=== PATIENT | female | born 1965 | race Caucasian/White ===

== ENCOUNTER 2016-11-23 21:26 | Inpatient (IN) | payer MEDICARE, MEDICAID ==
[2016-11-23] MEDS ORDERED: Iodixanol 320 MG/ML 100 ML BOTTLE IV ONE (22:37)
[2016-11-23] MEDS ORDERED: Sodium Chloride 0.9% 500 ML IV ONE (22:44)
[2016-11-23 22:48] LABS: BASO % 0.1 % (0.0-2.0); EOS # 0.1 K/uL (0.0-0.7); EOS % 0.5 % (0.0-4.0); HEMATOCRIT 32.4 % (34.0-47.0); LYMPH % 5.3 % (20.0-40.0); MEAN CELL VOLUME 82.3 fL (81.0-99.0); MEAN CORPUSCULAR HEMOGLOBIN 26.8 pg (27.0-31.0); MEAN CORPUSCULAR HGB CONC 32.5 g/dL (33.0-37.0); MEAN PLATELET VOLUME 9.6 fL (7.2-11.7); MONO # 1.4 K/uL (0.0-0.8); MONO % 7.2 % (0.0-10.0); RED CELL DISTRIBUTION WIDTH 13.9 % (11.5-14.5); WHITE BLOOD COUNT 18.9 K/uL (4.8-10.8)
[2016-11-23] MEDS ORDERED: Iohexol 240 (50 ml) PO ONE (22:55)
[2016-11-23 23:00] LABS: PLATELET COUNT 127 K/uL (130-400)
[2016-11-23 23:01] LABS: POTASSIUM 2.7 mmol/L (3.6-5.2)
--- NOTE | 2016-11-23 23:01 | C.PDOC ---
History Of Present Illness A 51 y/o female presents to the ER c/o abdominal pain and vomiting for the past 3 days. Pt is mentally challenged with dementia. Pt denies fever, chills, diarrhea, trauma to the area, vaginal bleeding or discharge, or any other complaints. Time Seen by Provider: 11/23/16 22:40 Chief Complaint (Nursing): Abdominal Pain History Per: Patient History/Exam Limitations: no limitations Onset/Duration Of Symptoms: Days Current Symptoms Are (Timing): Still Present Severity: Mild Location Of Pain/Discomfort: Diffuse Quality Of Discomfort: "Pain" Additional History Per: Patient Past Medical History Reviewed: Historical Data, Nursing Documentation, Vital Signs Vital Signs: Last Vital Signs Temp 98.0 F 11/23/16 21:47 Pulse 75 11/23/16 21:47 Resp 18 11/23/16 21:47 BP 137/82 11/23/16 21:47 Pulse Ox 100 11/24/16 02:45 - Medical History PMH: HTN, Hyperthyroidism Family History: States: Unknown Family Hx - Social History Hx Alcohol Use: No Hx Substance Use: No Review Of Systems Except As Marked, All Systems Reviewed And Found Negative. Constitutional: Negative for: Fever, Chills, Other (Trauma to the area) Gastrointestinal: Positive for: Vomiting, Abdominal Pain. Negative for: Diarrhea Genitourinary: Negative for: Vaginal Discharge, Vaginal Bleeding Physical Exam - Physical Exam Appears: Non-toxic, No Acute Distress, Agitated Skin: Warm, Dry Head: Atraumatic, Normacephalic Eye(s): bilateral: Normal Inspection, EOMI Cardiovascular: Rhythm Regular, No Murmur Respiratory: Rales (Rales left lower lung), No Rhonchi, No Wheezing Gastrointestinal/Abdominal: Soft, Tenderness (Tenderness of th eLLQ) Neurological/Psych: Oriented x3, Normal Speech, Normal Cognition ED Course And Treatment - Laboratory Results Result Diagrams: 11/23/16 22:46 11/23/16 22:46 ECG: Interpreted By Me, Viewed By Me ECG Rhythm: Sinus Tachycardia ECG Interpretation: No Acute Changes, Abnormal Interpretation Of ECG: presence of miniscule q wave in AVF qs in III Rate From EC O2 Sat by Pulse Oximetry: 100 (RA) Pulse Ox Interpretation: Normal - CT Scan/US CT Abdomen and Pelvis With Contrast Other Rad Studies (CT/US): Interpreted By Me, Read By Radiologist CT/US Interpretation: EXAM: CT Abdomen and Pelvis With Intravenous Contrast. CLINICAL HISTORY: 51 years old, female; Pain; Abdominal pain; Generalized; Additional info: Abd pain/ vomiting. TECHNIQUE: Axial computed tomography images of the abdomen and pelvis with intravenous contrast. This CT. exam was performed using one or more of the following dose reduction techniques: automated. exposure control, adjustment of the mA and/or kV according to patient size, and/or use of iterative. reconstruction technique. Coronal and sagittal reformatted images were created and reviewed. CONTRAST: 800 mL of [id number] administered intravenously. EXAM DATE/TIME: 11/23/2016 11:37 PM. COMPARISON: No relevant prior studies available. FINDINGS: LIMITATIONS: Exam is limited by mild to moderate streak/motion artifact, and by streak artifact from. metallic hardware in the right hip. LOWER THORAX: Patchy, small areas of consolidation in the lung bases bilaterally, in the perihilar. regions bilaterally, suspicious for a patchy bilateral pneumonia. Mild to moderate wall thickening of. the distal esophagus. There is gastroesophageal reflux. ABDOMEN : LIVER: No acute abnormality of the liver identified. GALLBLADDER AND BILE DUCTS: Gallbladder is not seen, and may be contracted or surgically. absent. PANCREAS: No CT evidence of acute pancreatitis. SPLEEN: No acute abnormality of the spleen identified. ADRENALS: No acute abnormality of the adrenal glands identified. KIDNEYS AND URETERS: Bilateral perinephric stranding, a nonspecific finding. No acute. abnormality of the kidneys identified. STOMACH AND BOWEL: No definite acute abnormality of the bowel identified, allowing for motion. artifact. No evidence of bowel obstruction. No evidence of diffuse colitis/pancolitis. APPENDIX:Normal appendix is not seen, however, there are no significant inflammatory changes. visualized in the expected location of the appendix to suggest appendicitis. Recommend clinical. correlation. PELVIS : BLADDER: No acute abnormality of the bladder identified. REPRODUCTIVE:No acute abnormality of the reproductive organs is seen. No acute abnormality of. the uterus identified. No evidence of large adnexal masses. ABDOMEN and PELVIS : INTRAPERITONEAL SPACE: No evidence of free intraperitoneal air or fluid. BONES/JOINTS: Metallic hardware in the right hip. Chronic-appearing vertebral compression. fracture of L2. SOFT TISSUES: No acute abnormality of the visualized soft tissues is seen. VASCULATURE: No evidence of abdominal aortic aneurysm. No evidence of periaortic. hemorrhage. LYMPH NODES: No evidence of diffuse lymphadenopathy. IMPRESSION: - Findings in the lung bases suspicious for a patchy bilateral pneumonia. Recommend clinical. correlation. - Wall thickening of the distal esophagus. This is a nonspecific finding, but can be seen with mild. esophagitis, such as reflux esophagitis. Recommend clinical correlation. - Otherwise, no evidence of significant acute process, allowing for motion artifact. - See above for remaining findings. Progress Note: NG tube inserted and showed clear aspirate, no blood noted., NG tube subsequently removed. Medical Decision Making Medical Decision Making: Impression: 51 y/o c/o abdominal pain and vomiting for 3 days. Plans: -CT Abd/Pel -CXR -Omnipaque -Ativan -IV fluids -Reassess and disposition Patient is resting comfortably, abdomen remains soft, and patient is tolerating PO. Patient feels comfortable going home. Patient will be discharged home Disposition Discussed With Dr.: Alexandria Aiken Doctor Will See Patient In The: Hospital Counseled Patient/Family Regarding: Diagnosis - Disposition Disposition: HOSPITALIZED Disposition Time: 02:43 Condition: STABLE - POA Present On Arrival: None - Clinical Impression Clinical Impression: Abdominal pain, Pneumonia, Renal insufficiency - Scribe Statement The provider has reviewed the documentation as recorded by the Scribe Fernando hargrove All medical record entries made by the Scribe were at my direction and personally dictated by me. I have reviewed the chart and agree that the record accurately reflects my personal performance of the history, physical exam, medical decision making, and the department course for this patient. I have also personally directed, reviewed, and agree with the discharge instructions and disposition.
[2016-11-23 23:03] LABS: BILIRUBIN,TOTAL 0.8 mg/dL (0.2-1.3)
[2016-11-23] MEDS ORDERED: Iohexol 240 (50 ml) ONE (23:03)
[2016-11-23 23:04] LABS: ALB/GLOB RATIO 0.8 (1.0-2.1); TOTAL PROTEIN 7.7 g/dL (6.3-8.3)
[2016-11-23 23:43] LABS: RBC URINE 26 /hpf (0-3); URINE BACTERIA RARE (<OCC); URINE BILIRUBIN NEGATIVE (NEGATIVE); URINE BLOOD 3+ (NEGATIVE); URINE COLOR Yellow (YELLOW); URINE GLUCOSE (UA) NORMAL (Normal); URINE HYALINE CAST 0-2 /lpf (0-2); URINE KETONE NEGATIVE (NEGATIVE); URINE LEUKOCYTE ESTERASE 3+ Leu/uL (Negative); URINE PROTEIN 2+ mg/dL (NEGATIVE); URINE UROBILINOGEN NORMAL mg/dL (0.2-1.0); WBC URINE 127 /hpf (0-5)
[2016-11-23 23:51] LABS: INR 1.3
[2016-11-23 23:53] LABS: NEUTROPHIL 86 % (50-75); TOTAL CELLS COUNTED 100
[2016-11-24] MEDS ORDERED: cefTRIAXone IV 1 gm in Dextros 50 ML IVPB ONE ×2 (00:44→01:01)
--- NOTE | 2016-11-24 02:18 | CT ---
EXAM: CT Abdomen and Pelvis With Intravenous Contrast CLINICAL HISTORY: 51 years old, female; Pain; Abdominal pain; Generalized; Additional info: Abd pain/ vomiting TECHNIQUE: Axial computed tomography images of the abdomen and pelvis with intravenous contrast. This CT exam was performed using one or more of the following dose reduction techniques: automated exposure control, adjustment of the mA and/or kV according to patient size, and/or use of iterative reconstruction technique. Coronal and sagittal reformatted images were created and reviewed. CONTRAST: 800 mL of [id number] administered intravenously. EXAM DATE/TIME: 11/23/2016 11:37 PM COMPARISON: No relevant prior studies available. FINDINGS: LIMITATIONS: Exam is limited by mild to moderate streak/motion artifact, and by streak artifact from metallic hardware in the right hip. LOWER THORAX: Patchy, small areas of consolidation in the lung bases bilaterally, in the perihilar regions bilaterally, suspicious for a patchy bilateral pneumonia. Mild to moderate wall thickening of the distal esophagus. There is gastroesophageal reflux. ABDOMEN: LIVER: No acute abnormality of the liver identified. GALLBLADDER AND BILE DUCTS: Gallbladder is not seen, and may be contracted or surgically absent. PANCREAS: No CT evidence of acute pancreatitis. SPLEEN: No acute abnormality of the spleen identified. ADRENALS: No acute abnormality of the adrenal glands identified. KIDNEYS AND URETERS: Bilateral perinephric stranding, a nonspecific finding. No acute abnormality of the kidneys identified. STOMACH AND BOWEL: No definite acute abnormality of the bowel identified, allowing for motion artifact. No evidence of bowel obstruction. No evidence of diffuse colitis/pancolitis. APPENDIX:Normal appendix is not seen, however, there are no significant inflammatory changes visualized in the expected location of the appendix to suggest appendicitis. Recommend clinical correlation. PELVIS: BLADDER: No acute abnormality of the bladder identified. REPRODUCTIVE:No acute abnormality of the reproductive organs is seen. No acute abnormality of the uterus identified. No evidence of large adnexal masses. ABDOMEN and PELVIS: INTRAPERITONEAL SPACE: No evidence of free intraperitoneal air or fluid. BONES/JOINTS: Metallic hardware in the right hip. Chronic-appearing vertebral compression fracture of L2. SOFT TISSUES: No acute abnormality of the visualized soft tissues is seen. VASCULATURE: No evidence of abdominal aortic aneurysm. No evidence of periaortic hemorrhage. LYMPH NODES: No evidence of diffuse lymphadenopathy. IMPRESSION: - Findings in the lung bases suspicious for a patchy bilateral pneumonia. Recommend clinical correlation. - Wall thickening of the distal esophagus. This is a nonspecific finding, but can be seen with mild esophagitis, such as reflux esophagitis. Recommend clinical correlation. - Otherwise, no evidence of significant acute process, allowing for motion artifact. - See above for remaining findings.
[2016-11-24] MEDS ORDERED: Azithromycin 500mg/250ML NS 500 MG/250 ML BAG IV STA (02:23)
[2016-11-24] MEDS ORDERED: Azithromycin 500mg/250ML NS 500 MG/250 ML BAG IVPB ONE (03:37)
--- NOTE | 2016-11-24 09:09 | RAD ---
PROCEDURE: CHEST RADIOGRAPH, 1 VIEW HISTORY: abd pain COMPARISON: None available. FINDINGS: LUNGS: Findings suggestive of mild pulmonary vascular congestion. PLEURA: No pneumothorax or pleural fluid seen. CARDIOVASCULAR: The cardiac silhouette is upper normal OSSEOUS STRUCTURES: No significant abnormalities. VISUALIZED UPPER ABDOMEN: Normal. OTHER FINDINGS: None. IMPRESSION: Suspicious for mild pulmonary vascular congestion. No evidence of free air in the upper abdomen.
[2016-11-24 11:20] LABS: POTASSIUM 2.8 mmol/L (3.6-5.2)
[2016-11-24 11:22] LABS: BILIRUBIN,TOTAL 0.6 mg/dL (0.2-1.3)
[2016-11-24 11:23] LABS: ALB/GLOB RATIO 0.8 (1.0-2.1); CALCIUM 7.1 mg/dl (8.6-10.4); TOTAL PROTEIN 6.6 g/dL (6.3-8.3)
--- NOTE | 2016-11-24 16:25 | CP.PCM.HP ---
History of Present Illness - History of Present Illness History of Present Illness: 51-year-old female patient with a past medical history of hypertension, hypothyroidism, who resented to ER with complaint of abdominal pain and vomiting for the past 3 days. Patient is mentally challenged with dementia. Denies fever, chills, diarrhea, trauma to the area, vaginal bleeding or discharge or any other complaints. Present on Admission - Present on Admission Any Indicators Present on Admission: No Past Patient History - Infectious Disease Hx of Infectious Diseases: None - Past Medical History & Family History Past Medical History?: Yes - Past Social History Smoking Status: Never Smoked - CARDIAC Hx Hypertension: Yes - ENDOCRINE/METABOLIC Hx Hyperthyroidism: Yes - MUSCULOSKELETAL/RHEUMATOLOGICAL Hx Falls: No - PSYCHIATRIC Hx Substance Use: No - SURGICAL HISTORY Hx Surgeries: No - ANESTHESIA Hx Anesthesia: No Meds Home Medications: Home Medication List Medication Instructions Recorded Confirmed Type Lactobacillus Acidophilus 1 cap PO BID 15 Days 11/29/16 Rx [Acidophilus] Metoprolol Succinate [Toprol XL] 25 mg PO DAILY tab 11/29/16 Rx Moxifloxacin [Avelox] 400 mg PO DAILY #7 tab 11/29/16 Rx Allergies/Adverse Reactions: Allergies Allergy/AdvReac Type Severity Reaction Status Date / Time No Known Allergies Allergy Verified 11/23/16 21:49 Results - Vital Signs Recent Vital Signs: Last Vital Signs Temp 97.4 F L 11/24/16 08:20 Pulse 116 H 11/24/16 08:37 Resp 19 11/24/16 08:20 BP 114/78 11/24/16 08:20 Pulse Ox 98 11/24/16 08:20 - Labs Result Diagrams: 11/29/16 14:35 11/26/16 07:09 Labs: Laboratory Results - last 24 hr 11/24/16 11:04 Sodium 125 L Potassium 2.8 L Chloride 85 L Carbon Dioxide 27 Anion Gap 17 BUN 67 H Creatinine 3.5 H Est GFR ( Amer) 17 Est GFR (Non-Af Amer) 14 Random Glucose 98 Calcium 7.1 L Total Bilirubin 0.6 AST 98 H ALT 72 H Alkaline Phosphatase 80 Total Protein 6.6 Albumin 3.0 L Globulin 3.7 Albumin/Globulin Ratio 0.8 L Assessment & Plan (1) Abdominal pain Status: Acute (2) Pneumonia Status: Acute (3) Renal insufficiency Status: Acute - Assessment and Plan (Free Text) Plan: consult Gastrology consult pulmonology consult ID consult Media Relations Associate Imipenam/Cilastatin iv NS Metoclopramide Avelox Protonix
[2016-11-24] MEDS ORDERED: DiphenhydrAMINE 50 mg/ml Inj IVP STA (20:57)
[2016-11-25 07:07] LABS: BASO % 0.1 % (0.0-2.0); EOS # 0.1 K/uL (0.0-0.7); EOS % 0.5 % (0.0-4.0); HEMATOCRIT 29.3 % (34.0-47.0); LYMPH # 0.9 K/uL (1.0-4.3); LYMPH % 6.5 % (20.0-40.0); MEAN CELL VOLUME 82.3 fL (81.0-99.0); MEAN CORPUSCULAR HEMOGLOBIN 26.8 pg (27.0-31.0); MEAN CORPUSCULAR HGB CONC 32.6 g/dL (33.0-37.0); MEAN PLATELET VOLUME 9.4 fL (7.2-11.7); MONO # 1.4 K/uL (0.0-0.8); NRBC % 0.1 % (0.0-2.0); PLATELET COUNT 113 K/uL (130-400); RED CELL DISTRIBUTION WIDTH 14.2 % (11.5-14.5); WHITE BLOOD COUNT 13.7 K/uL (4.8-10.8)
[2016-11-25 07:40] LABS: POTASSIUM 3.9 mmol/L (3.6-5.2)
[2016-11-25 07:42] LABS: BILIRUBIN,TOTAL 0.7 mg/dL (0.2-1.3)
[2016-11-25 07:43] LABS: ALB/GLOB RATIO 0.8 (1.0-2.1); CALCIUM 7.9 mg/dl (8.6-10.4); TOTAL PROTEIN 6.9 g/dL (6.3-8.3)
[2016-11-25 08:56] LABS: NEUTROPHIL 83 % (50-75); TOTAL CELLS COUNTED 100
[2016-11-25] MEDS ORDERED: Enoxaparin 30 mg Syringe SC SCH (10:00)
[2016-11-25] MEDS: Multiple Vitamins Oral Solution PO SCH (11:29)
[2016-11-25] MEDS ORDERED: Imipenem/Cilastatin 500 MG in Dextrose 5% In Water 100 ML IVPB SCH (12:15)
[2016-11-25] MEDS: Sodium Chloride 0.9% 1,000 ML IV SCH (13:22)
[2016-11-25] MEDS: Metoprolol Succinate 25 mg XL Tab PO SCH (13:22)
--- NOTE | 2016-11-25 13:32 | CP.PCM.CON ---
History of Present Illness - History of Present Illness History of Present Illness: Consult requested by Dr Eleanor Aiken- Interview conducted in Nik at bedside with . Patient has history of dementia. In a nutshell this is a 51 y/o female brought to the ER with lower abdominal pain and vomiting for the past 3 days which gradually got worse. Patient noted to have UTI on urine analysis but as patient denies dysuria. She denies fever, chills, diarrhea, constipation, cough or rectal bleeding. is unsure if ehas had EGD/ colonoscopy in the past. Patient was brought snacks from home that she ate as per . Review of Systems - Review of Systems Review of Systems: 12 point ROS unremarkable except that documented in HPI Past Patient History - Infectious Disease Hx of Infectious Diseases: None - Past Medical History & Family History Past Medical History?: Yes - Past Social History Smoking Status: Never Smoked - CARDIAC Hx Hypertension: Yes - ENDOCRINE/METABOLIC Hx Hyperthyroidism: Yes - MUSCULOSKELETAL/RHEUMATOLOGICAL Hx Falls: No - PSYCHIATRIC Hx Substance Use: No - SURGICAL HISTORY Hx Surgeries: No - ANESTHESIA Hx Anesthesia: No Meds Allergies/Adverse Reactions: Allergies Allergy/AdvReac Type Severity Reaction Status Date / Time No Known Allergies Allergy Verified 11/23/16 21:49 - Medications Medications: Current Medications Dicyclomine HCl (Bentyl) 20 mg PO DAILY [facility] Imipenem/Cilastatin Sodium 250 (mg/ Sodium Chloride) 100 mls @ 100 mls/hr IVPB Q6H [facility] Sodium Chloride (Sodium Chloride 0.9%) 1,000 mls @ 75 mls/hr IV .[id number] [facility] Aztreonam 1 gm/ Sodium (Chloride) 100 mls @ 200 mls/hr IVPB DAILY [facility] Influenza Virus Vaccine (Afluria) 45 mcg IM .ONCE ONE Stop: 11/26/16 14:01 Metoclopramide HCl (Reglan) 10 mg PO DAILY [facility] Last Admin: 11/25/16 09:53 Dose: 10 mg Metoprolol Succinate (Toprol Xl) 25 mg PO DAILY [facility] Moxifloxacin HCl (Avelox) 400 mg PO DAILY [facility] Last Admin: 11/25/16 09:53 Dose: 400 mg Multivitamins/Vitamin C (Multi-Delyn Liquid) 5 ml PO DAILY [facility] Last Admin: 11/25/16 11:29 Dose: 5 ml Pantoprazole Sodium (Protonix Inj) 40 mg IVP DAILY [facility] Last Admin: 11/25/16 09:53 Dose: 40 mg Pneumococcal Polyvalent Vaccine (Pneumovax 23 Vaccine) 0.5 ml IM .ONCE ONE Stop: 11/26/16 14:01 Physical Exam - Constitutional Appears: Well, No Acute Distress, Older Than Stated Age, Confused - Head Exam Head Exam: ATRAUMATIC, NORMAL INSPECTION, NORMOCEPHALIC Additional comments: Anicteric sclera - Eye Exam Eye Exam: EOMI, Normal appearance, PERRL - ENT Exam ENT Exam: Mucous Membranes Moist, Normal Exam - Neck Exam Neck exam: Positive for: Normal Inspection - Respiratory Exam Respiratory Exam: Clear to Auscultation Bilateral, NORMAL BREATHING PATTERN - Cardiovascular Exam Cardiovascular Exam: REGULAR RHYTHM - GI/Abdominal Exam GI & Abdominal Exam: Normal Bowel Sounds, Soft. absent: Tenderness Additional comments: Non tender. No guarding or rigidity - Extremities Exam Extremities exam: Positive for: normal inspection - Back Exam Back exam: FULL ROM - Neurological Exam Neurological exam: Alert, Reflexes Normal - Psychiatric Exam Psychiatric exam: Normal Mood - Skin Skin Exam: Dry, Intact Results - Vital Signs Recent Vital Signs: Last Vital Signs Temp 97.3 F L 11/25/16 07:00 Pulse 106 H 11/25/16 07:00 Resp 19 11/25/16 07:00 BP 121/79 11/25/16 07:00 Pulse Ox 97 11/25/16 07:00 - Labs Result Diagrams: 11/25/16 07:00 11/25/16 07:00 Labs: Laboratory Results - last 24 hr 11/25/16 11/25/16 07:00 07:00 WBC 13.7 H RBC 3.57 L Hgb 9.6 L Hct 29.3 L MCV 82.3 MCH 26.8 L MCHC 32.6 L RDW 14.2 Plt Count 113 L MPV 9.4 Neut % (Auto) 82.9 H Lymph % (Auto) 6.5 L [place] % (Auto) 10.0 Eos % (Auto) 0.5 Baso % (Auto) 0.1 Neut # 11.3 H Lymph # 0.9 L [place] # 1.4 H Eos # 0.1 Baso # 0.0 Neutrophils % (Manual) 83 H Lymphocytes % (Manual) 9 L Monocytes % (Manual) 8 Toxic Granulation Present Platelet Estimate Slightly decreased L Hypochromasia (manual) Slight Poikilocytosis (manual Slight Anisocytosis (manual) Slight Tear Drop Cells Slight Ovalocytes Slight [place] Cells Slight Sodium 129 L Potassium 3.9 Chloride 94 L Carbon Dioxide 22 Anion Gap 18 BUN 65 H Creatinine 3.1 H Est GFR ( Amer) 19 Est GFR (Non-Af Amer) 16 Random Glucose 102 Calcium 7.9 L Total Bilirubin 0.7 AST 127 H D ALT 87 H D Alkaline Phosphatase 92 Total Protein 6.9 Albumin 3.0 L Globulin 3.9 Albumin/Globulin Ratio 0.8 L Assessment & Plan - Assessment and Plan (Free Text) Assessment: This is a 51 yr old gujarati female with alleged dementia who does not appropriately answer questions. at bedside interviewed in Nik. She complained of lower abdominal pain worsening in past 3 days with one episode of vomiting. In ER found to have leukocytosis, LE +, WBC +, RBC + on UA and CTAP shows lower esophagus thickening likely due to GERD related esophagitis. Unknown history of past luminal exams. Also has elevated transminases with normal TB. Plan: - Leukocytosis improving - urine culture shows contaminant - repeat Urine culture - DARIAN likely due to infection or dehydration - Will benefit from nephrology consult - CTAP shows b/l patchy infiltrate sin lungs - Antibiotics as per primary team - PPI daily on empty stomach in am - Send iron profile - Will benefit from EGD/ colonoscopy- can be done as outpatient - Abnormal LFT- will send hepatitis and autoimmune serologies - Abdominal sonogram - Trend daily LFT - Will follow - Date & Time Date: 11/25/16
[2016-11-25] MEDS ORDERED: Aztreonam 1 GM in Sodium Chloride 0.9% 100 ML IVPB SCH (14:00)
[2016-11-25] MEDS: Imipenem/Cilastatin 250 MG in Sodium Chloride 100 ML IVPB SCH ×2 (14:50→18:41)
--- NOTE | 2016-11-25 16:06 | CP.PCM.CON ---
History of Present Illness - History of Present Illness History of Present Illness: dictated Past Patient History - Infectious Disease Hx of Infectious Diseases: None - Past Medical History & Family History Past Medical History?: Yes - Past Social History Smoking Status: Never Smoked - CARDIAC Hx Hypertension: Yes - ENDOCRINE/METABOLIC Hx Hyperthyroidism: Yes - MUSCULOSKELETAL/RHEUMATOLOGICAL Hx Falls: No - PSYCHIATRIC Hx Substance Use: No - SURGICAL HISTORY Hx Surgeries: No - ANESTHESIA Hx Anesthesia: No Meds Allergies/Adverse Reactions: Allergies Allergy/AdvReac Type Severity Reaction Status Date / Time No Known Allergies Allergy Verified 11/23/16 21:49 - Medications Medications: Current Medications Dicyclomine HCl (Bentyl) 20 mg PO DAILY [facility] Imipenem/Cilastatin Sodium 250 (mg/ Sodium Chloride) 100 mls @ 100 mls/hr IVPB Q6H [facility] Last Admin: 11/25/16 14:50 Dose: 100 mls/hr Sodium Chloride (Sodium Chloride 0.9%) 1,000 mls @ 75 mls/hr IV .[id number] [facility] Last Admin: 11/25/16 13:22 Dose: 75 mls/hr Aztreonam 1 gm/ Sodium (Chloride) 100 mls @ 200 mls/hr IVPB DAILY [facility] Last Admin: 11/25/16 13:24 Dose: 200 mls/hr Influenza Virus Vaccine (Afluria) 45 mcg IM .ONCE ONE Stop: 11/26/16 14:01 Metoclopramide HCl (Reglan) 10 mg PO DAILY [facility] Last Admin: 11/25/16 09:53 Dose: 10 mg Metoprolol Succinate (Toprol Xl) 25 mg PO DAILY [facility] Last Admin: 11/25/16 13:22 Dose: 25 mg Moxifloxacin HCl (Avelox) 400 mg PO DAILY [facility] Last Admin: 11/25/16 09:53 Dose: 400 mg Multivitamins/Vitamin C (Multi-Delyn Liquid) 5 ml PO DAILY [facility] Last Admin: 11/25/16 11:29 Dose: 5 ml Pantoprazole Sodium (Protonix Inj) 40 mg IVP DAILY [facility] Last Admin: 11/25/16 09:53 Dose: 40 mg Pneumococcal Polyvalent Vaccine (Pneumovax 23 Vaccine) 0.5 ml IM .ONCE ONE Stop: 11/26/16 14:01 Results - Vital Signs Recent Vital Signs: Last Vital Signs Temp 97.7 F 11/25/16 15:35 Pulse 107 H 11/25/16 15:35 Resp 18 11/25/16 15:35 BP 120/69 11/25/16 15:35 Pulse Ox 98 11/25/16 15:35 - Labs Result Diagrams: 11/25/16 07:00 11/25/16 07:00 Labs: Laboratory Results - last 24 hr 11/25/16 11/25/16 11/25/16 07:00 07:00 13:34 WBC 13.7 H RBC 3.57 L Hgb 9.6 L Hct 29.3 L MCV 82.3 MCH 26.8 L MCHC 32.6 L RDW 14.2 Plt Count 113 L MPV 9.4 Neut % (Auto) 82.9 H Lymph % (Auto) 6.5 L [place] % (Auto) 10.0 Eos % (Auto) 0.5 Baso % (Auto) 0.1 Neut # 11.3 H Lymph # 0.9 L [place] # 1.4 H Eos # 0.1 Baso # 0.0 Neutrophils % (Manual) 83 H Lymphocytes % (Manual) 9 L Monocytes % (Manual) 8 Toxic Granulation Present Platelet Estimate Slightly decreased L Hypochromasia (manual) Slight Poikilocytosis (manual Slight Anisocytosis (manual) Slight Tear Drop Cells Slight Ovalocytes Slight [place] Cells Slight Sodium 129 L Potassium 3.9 Chloride 94 L Carbon Dioxide 22 Anion Gap 18 BUN 65 H Creatinine 3.1 H Est GFR ( Amer) 19 Est GFR (Non-Af Amer) 16 Random Glucose 102 Calcium 7.9 L Total Bilirubin 0.7 AST 127 H D ALT 87 H D Alkaline Phosphatase 92 Total Protein 6.9 Albumin 3.0 L Globulin 3.9 Albumin/Globulin Ratio 0.8 L IgG Hepatitis A IgM Ab Negative Hep Bs Antigen Negative Hep B Core IgM Ab Negative 11/25/16 14:30 WBC RBC Hgb Hct MCV MCH MCHC RDW Plt Count MPV Neut % (Auto) Lymph % (Auto) [place] % (Auto) Eos % (Auto) Baso % (Auto) Neut # Lymph # [place] # Eos # Baso # Neutrophils % (Manual) Lymphocytes % (Manual) Monocytes % (Manual) Toxic Granulation Platelet Estimate Hypochromasia (manual) Poikilocytosis (manual Anisocytosis (manual) Tear Drop Cells Ovalocytes [place] Cells Sodium Potassium Chloride Carbon Dioxide Anion Gap BUN Creatinine Est GFR ( Amer) Est GFR (Non-Af Amer) Random Glucose Calcium Total Bilirubin AST ALT Alkaline Phosphatase Total Protein Albumin Globulin Albumin/Globulin Ratio IgG 1124.5 Hepatitis A IgM Ab Hep Bs Antigen Hep B Core IgM Ab
--- NOTE | 2016-11-25 18:04 | CP.PCM.PN ---
Subjective - Date & Time of Evaluation Date of Evaluation: 11/25/16 Time of Evaluation: 11:20 - Subjective Subjective: clinically same Objective - Vital Signs/Intake and Output Vital Signs (last 24 hours): Temp Pulse Resp BP Pulse Ox 97.7 F 107 H 18 120/69 98 11/25/16 15:35 11/25/16 15:35 11/25/16 15:35 11/25/16 15:35 11/25/16 15:35 Intake and Output: 11/25/16 11/25/16 06:59 18:59 Intake Total 550 580 Balance 550 580 - Medications Medications: Current Medications Dicyclomine HCl (Bentyl) 20 mg PO DAILY [facility] Imipenem/Cilastatin Sodium 250 (mg/ Sodium Chloride) 100 mls @ 100 mls/hr IVPB Q6H [facility] Last Admin: 11/25/16 14:50 Dose: 100 mls/hr Sodium Chloride (Sodium Chloride 0.9%) 1,000 mls @ 75 mls/hr IV .[id number] [facility] Last Admin: 11/25/16 13:22 Dose: 75 mls/hr Influenza Virus Vaccine (Afluria) 45 mcg IM .ONCE ONE Stop: 11/26/16 14:01 Metoclopramide HCl (Reglan) 10 mg PO DAILY [facility] Last Admin: 11/25/16 09:53 Dose: 10 mg Metoprolol Succinate (Toprol Xl) 25 mg PO DAILY [facility] Last Admin: 11/25/16 13:22 Dose: 25 mg Moxifloxacin HCl (Avelox) 400 mg PO DAILY [facility] Last Admin: 11/25/16 09:53 Dose: 400 mg Multivitamins/Vitamin C (Multi-Delyn Liquid) 5 ml PO DAILY [facility] Last Admin: 11/25/16 11:29 Dose: 5 ml Pantoprazole Sodium (Protonix Inj) 40 mg IVP DAILY [facility] Last Admin: 11/25/16 09:53 Dose: 40 mg Pneumococcal Polyvalent Vaccine (Pneumovax 23 Vaccine) 0.5 ml IM .ONCE ONE Stop: 11/26/16 14:01 - Labs Labs: 11/25/16 07:00 11/25/16 07:00 PT 14.8 SECONDS (9.7-12.2) H 11/23/16 23:22 INR 1.3 11/23/16 23:22 APTT 30 SECONDS (21-34) 11/23/16 23:22 - Constitutional Appears: Well - Head Exam Head Exam: ATRAUMATIC, NORMAL INSPECTION, NORMOCEPHALIC - Eye Exam Eye Exam: EOMI, Normal appearance, PERRL Pupil Exam: NORMAL ACCOMODATION, PERRL - ENT Exam ENT Exam: Mucous Membranes Moist, Normal Exam - Neck Exam Neck Exam: Full ROM, Normal Inspection. absent: Lymphadenopathy - Respiratory Exam Respiratory Exam: Decreased Breath Sounds - Cardiovascular Exam Cardiovascular Exam: REGULAR RHYTHM, +S1, +S2 - GI/Abdominal Exam GI & Abdominal Exam: Soft, Diminished Bowel Sounds - Rectal Exam Rectal Exam: Deferred Assessment and Plan (1) Abdominal pain Status: Acute (2) Pneumonia Status: Acute (3) Renal insufficiency Status: Acute - Assessment and Plan (Free Text) Plan: consult Gastrology consult pulmonology consult ID consult Supervisor Word Processing Urinalysis +ve for UTI Imipenam/Cilastatin iv NS Metoclopramide Avelox Protonix
--- NOTE | 2016-11-25 20:03 | US ---
EXAM: US Abdomen Limited, Right Upper Quadrant CLINICAL HISTORY: 51 years old, female; Signs and symptoms; Other: Rule out gallstones TECHNIQUE: Real-time ultrasound of the right upper quadrant with image documentation. EXAM DATE/TIME: 11/25/2016 1:33 PM COMPARISON: CT - ABD PELVIS PO CONTRAST ONLY 11/24/2016 1:26:55 AM FINDINGS: Liver: Hepatic texture is mildly heterogeneous. There are focal area is of decreased attenuation. There is hepatopedal flow in the main portal vein. Gallbladder: Gallbladder is incompletely distended distended with no stones, sludge or wall thickening. Common bile duct: Common bile duct measures approximately 5.4 mm in diameter. Pancreas: Pancreas is partially obscured by bowel gas. Visualized portion is unremarkable. Right kidney: Right kidney is normal in size. There is mild fullness of the right renal pelvis. Aorta: Visualized portions of the aorta and inferior vena cava are unremarkable. IMPRESSION: Incompletely distended gallbladder, no stones or ductal dilatation; fatty liver with focal fatty sparing Patient was not tender over the gallbladder
[2016-11-26] MEDS: Imipenem/Cilastatin 250 MG in Sodium Chloride 100 ML IVPB SCH ×4 (01:30→19:17)
--- NOTE | 2016-11-26 07:02 | CON ---
DATE: 11/25/2016 REQUESTING PHYSICIAN: Dr. Tristen Aiken. HISTORY OF PRESENT ILLNESS: This patient is a 51-year-old female. She has mental retardation with d ementia, came in with abdominal pain and vomiting. She does not talk, but she comprehend it seems. She denies any fever or chills, but she is having some suprapubic pain and I am asked to see her juan manuel use her blood cultures came out positive for Gram-negative bacilli. Gram-negative rods were seen on the blood cultures and I am asked to evaluate. She also has renal insufficiency. She was admitted o n 11/23 and came in with diffuse abdominal pain. Most of the history is taken from the chart. She d enied any fever, chills, diarrhea, trauma or any other problems. She has a history of hypertension, hypothyroidism. SOCIAL HISTORY: Negative for smoking. Her brother and father takes care of her. REVIEW OF SYSTEMS: There were no fever, no chills. She was having vomiting and abdominal pain. 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 She was also having a high white count when she came in. Now the blood cultur es are positive for Gram-negative bacilli. MEDICATIONS: I find she just started on Azactam. She was on Bentyl and now she is on imipenem, Regl an, Toprol. She was on moxifloxacin. I would like to take away the Azactam then if she is on moxi. Zithromax was discontinued. Metoprolol was discontinued. She is on moxi , so then Azactam we do not have to give her. She is on imipenem and Avelox at this time, will continue both of them. PHYSICAL EXAMINATION: VITAL SIGNS: I find her T-max is 97.7, heart rate is 107, blood pressure 120/69, respirations are 18 . HEENT: Her head is atraumatic, normocephalic. She is mentally retarded, does not communicate. Pupi ls are reacting to light. Throat, no congestion, no thrush seen. NECK: Supple. LUNGS: Clear. No crackles or rales present. HEART: S1, S2 regular. ABDOMEN: Soft, nontender, no guarding, no rigidity present. Suprapubic tenderness present. EXTREMITIES: No edema, clubbing or cyanosis. LABORATORY DATA: Noted. Labs show white count is 13.7, hemoglobin 9.6, hematocrit 29.3, platelet co unt is 113. Chemistry shows creatinine is 3.1. Sodium is 129. She came with a creatinine of 4.2, A ST is 127, ALT is 87, most likely secondary to sepsis. She had a CAT scan of the abdomen and pelvis. I told the nurse to collect urine, but she says because the patient is retarded she may not be able to do that. CAT scan showed suspicious for a patchy bilateral pneumonia with thickening of the dist al esophagus and does not talk much about the abdomen. Normal appendix. The kidneys have bilateral perinephric stranding, a nonspecific finding. Bladder, no acute abnormality reported. She does have bilateral pneumonia, also has a Gram-negative septicemia, most likely secondary to the urine. The u rine showed a lot of WBCs, 3+ leukocyte esterase; however, I do not have a urine culture isolat ed and said probable contaminants, multiples species. At this time, I am going to leave her on both of these medications and will follow. She does also have renal insufficiency. Ciaran Gavin MD cc: [id number] TT: 11/25/2016 17:41:22 Confirmation # [id number] Dictation # [id number] mn
[2016-11-26 07:44] LABS: BASO % 0.1 % (0.0-2.0); EOS # 0.1 K/uL (0.0-0.7); EOS % 1.2 % (0.0-4.0); HEMATOCRIT 26.7 % (34.0-47.0); LYMPH # 1.2 K/uL (1.0-4.3); LYMPH % 9.5 % (20.0-40.0); MEAN CELL VOLUME 83.1 fL (81.0-99.0); MEAN CORPUSCULAR HEMOGLOBIN 27.4 pg (27.0-31.0); MEAN PLATELET VOLUME 9.3 fL (7.2-11.7); MONO # 1.4 K/uL (0.0-0.8); MONO % 11.7 % (0.0-10.0); PLATELET COUNT 108 K/uL (130-400); WHITE BLOOD COUNT 12.2 K/uL (4.8-10.8)
--- NOTE | 2016-11-26 07:56 | CP.PCM.PN ---
Subjective - Date & Time of Evaluation Date of Evaluation: 11/26/16 Time of Evaluation: 07:52 - Subjective Subjective: Patient seen and examined, resting in bed comfortably. No acute events overnight. She denies abdominal pain, nausea, vomiting, fever/chills. Tolerating PO diet without difficulty. Review of vitals from today shows tachycardia. 12 point review of systems performed, negative aside from mentioned above. Objective - Vital Signs/Intake and Output Vital Signs (last 24 hours): Temp Pulse Resp BP Pulse Ox 97.3 F L 105 H 18 139/66 96 11/26/16 00:00 11/26/16 00:00 11/26/16 00:00 11/26/16 00:00 11/26/16 00:00 Intake and Output: 11/26/16 11/26/16 06:59 18:59 Intake Total 320 Balance 320 - Medications Medications: Current Medications Dicyclomine HCl (Bentyl) 20 mg PO DAILY [facility] Imipenem/Cilastatin Sodium 250 (mg/ Sodium Chloride) 100 mls @ 100 mls/hr IVPB Q6H [facility] Last Admin: 11/26/16 06:02 Dose: 100 mls/hr Sodium Chloride (Sodium Chloride 0.9%) 1,000 mls @ 75 mls/hr IV .[id number] [facility] Last Admin: 11/25/16 13:22 Dose: 75 mls/hr Influenza Virus Vaccine (Afluria) 45 mcg IM .ONCE ONE Stop: 11/26/16 14:01 Metoclopramide HCl (Reglan) 10 mg PO DAILY [facility] Last Admin: 11/25/16 09:53 Dose: 10 mg Metoprolol Succinate (Toprol Xl) 25 mg PO DAILY [facility] Last Admin: 11/25/16 13:22 Dose: 25 mg Moxifloxacin HCl (Avelox) 400 mg PO DAILY [facility] Last Admin: 11/25/16 09:53 Dose: 400 mg Multivitamins/Vitamin C (Multi-Delyn Liquid) 5 ml PO DAILY [facility] Last Admin: 11/25/16 11:29 Dose: 5 ml Pantoprazole Sodium (Protonix Inj) 40 mg IVP DAILY [facility] Last Admin: 11/25/16 09:53 Dose: 40 mg Pneumococcal Polyvalent Vaccine (Pneumovax 23 Vaccine) 0.5 ml IM .ONCE ONE Stop: 11/26/16 14:01 - Labs Labs: 11/26/16 07:09 11/25/16 07:00 PT 14.8 SECONDS (9.7-12.2) H 11/23/16 23:22 INR 1.3 11/23/16 23:22 APTT 30 SECONDS (21-34) 11/23/16 23:22 - Constitutional Appears: Non-toxic, No Acute Distress - Head Exam Head Exam: NORMAL INSPECTION - Eye Exam Eye Exam: EOMI, Normal appearance - ENT Exam ENT Exam: Mucous Membranes Moist Additional comments: poor dentition - Respiratory Exam Respiratory Exam: Clear to Ausculation Bilateral - Cardiovascular Exam Cardiovascular Exam: Tachycardia, REGULAR RHYTHM, +S1, +S2 - GI/Abdominal Exam GI & Abdominal Exam: Soft, Normal Bowel Sounds Additional comments: non tender to palpation in four quadrants - Extremities Exam Extremities Exam: Normal Inspection - Skin Skin Exam: Dry, Intact, Normal Color, Warm Assessment and Plan - Assessment and Plan (Free Text) Assessment: Dementia UTI Pneumonia Transaminitis - Abdominal US reviewed by me showing fatty liver, normal caliber CBD. Viral hepatitis panel negative. Plan: - Diet as tolerated - Continue with antibiotic therapy as per ID, awaiting urine culture - LFTs stable, continue to monitor and avoid hepatotoxic agents - Awaiting autoimmune panel - Will continue to monitor patient clinical course
[2016-11-26 08:14] LABS: POTASSIUM 3.8 mmol/L (3.6-5.2)
[2016-11-26 08:16] LABS: ALB/GLOB RATIO 0.7 (1.0-2.1); BILIRUBIN,DIRECT 0.8 mg/dL (0.0-0.4); BILIRUBIN,TOTAL 0.8 mg/dL (0.2-1.3)
[2016-11-26 08:17] LABS: CALCIUM 7.5 mg/dl (8.6-10.4)
[2016-11-26 09:05] LABS: EOSINOPHIL 2 % (0-4); NEUTROPHIL 78 % (50-75); REACTIVE LYMPHOCYTES 3 % (0-0); TOTAL CELLS COUNTED 100
[2016-11-26 09:07] LABS: LARGE PLATELETS PRESENT
[2016-11-26] MEDS: Metoprolol Succinate 25 mg XL Tab PO SCH (11:00)
[2016-11-26] MEDS: Multiple Vitamins Oral Solution PO SCH (11:00)
--- NOTE | 2016-11-26 13:56 | CP.PCM.PN ---
Subjective - Date & Time of Evaluation Date of Evaluation: 11/26/16 Time of Evaluation: 09:40 - Subjective Subjective: bun cr is getting better o abd pian s/p gi contis brenda Objective - Vital Signs/Intake and Output Vital Signs (last 24 hours): Temp Pulse Resp BP Pulse Ox 97.5 F L 101 H 20 119/78 95 11/26/16 09:16 11/26/16 09:16 11/26/16 09:16 11/26/16 09:16 11/26/16 09:16 Intake and Output: 11/26/16 11/26/16 06:59 18:59 Intake Total 320 Balance 320 - Medications Medications: Current Medications Dicyclomine HCl (Bentyl) 20 mg PO DAILY [facility] Last Admin: 11/26/16 12:13 Dose: 20 mg Imipenem/Cilastatin Sodium 250 (mg/ Sodium Chloride) 100 mls @ 100 mls/hr IVPB Q6H [facility] Last Admin: 11/26/16 12:13 Dose: 100 mls/hr Sodium Chloride (Sodium Chloride 0.9%) 1,000 mls @ 75 mls/hr IV .[id number] [facility] Last Admin: 11/25/16 13:22 Dose: 75 mls/hr Influenza Virus Vaccine (Afluria) 45 mcg IM .ONCE ONE Stop: 11/26/16 14:01 Last Admin: 11/26/16 13:05 Dose: Not Given Metoclopramide HCl (Reglan) 10 mg PO DAILY [facility] Last Admin: 11/26/16 10:59 Dose: 10 mg Metoprolol Succinate (Toprol Xl) 25 mg PO DAILY [facility] Last Admin: 11/26/16 11:00 Dose: 25 mg Moxifloxacin HCl (Avelox) 400 mg PO DAILY [facility] Last Admin: 11/26/16 10:59 Dose: 400 mg Multivitamins/Vitamin C (Multi-Delyn Liquid) 5 ml PO DAILY [facility] Last Admin: 11/26/16 11:00 Dose: 5 ml Pantoprazole Sodium (Protonix Inj) 40 mg IVP DAILY [facility] Last Admin: 11/26/16 11:00 Dose: 40 mg Pneumococcal Polyvalent Vaccine (Pneumovax 23 Vaccine) 0.5 ml IM .ONCE ONE Stop: 11/26/16 14:01 Last Admin: 11/26/16 13:12 Dose: 0.5 ml - Labs Labs: 11/26/16 07:09 11/26/16 07:09 PT 14.8 SECONDS (9.7-12.2) H 11/23/16 23:22 INR 1.3 11/23/16 23:22 APTT 30 SECONDS (21-34) 11/23/16 23:22 - Constitutional Appears: Well - Head Exam Head Exam: ATRAUMATIC, NORMAL INSPECTION, NORMOCEPHALIC - Eye Exam Eye Exam: EOMI, Normal appearance, PERRL Pupil Exam: NORMAL ACCOMODATION, PERRL - ENT Exam ENT Exam: Mucous Membranes Moist, Normal Exam - Neck Exam Neck Exam: Full ROM, Normal Inspection. absent: Lymphadenopathy - Respiratory Exam Respiratory Exam: Decreased Breath Sounds - Cardiovascular Exam Cardiovascular Exam: REGULAR RHYTHM, +S1, +S2 - GI/Abdominal Exam GI & Abdominal Exam: Soft, Diminished Bowel Sounds - Rectal Exam Rectal Exam: Deferred Assessment and Plan - Assessment and Plan (Free Text) Plan: bun cr is getting better o abd picourtney s/p gi rodney same
[2016-11-26] MEDS ORDERED: Pneumococcal 23-Valent Vaccine IM ONE (14:00)
[2016-11-26] MEDS ORDERED: Influenza Virus Vaccine 45 mcg/0.5 ml Syr IM ONE (14:00)
--- NOTE | 2016-11-26 15:19 | CP.PCM.PN ---
Subjective - Date & Time of Evaluation Date of Evaluation: 11/26/16 Time of Evaluation: 03:00 - Subjective Subjective: dictated Objective - Vital Signs/Intake and Output Vital Signs (last 24 hours): Temp Pulse Resp BP Pulse Ox 97.5 F L 101 H 20 119/78 95 11/26/16 09:16 11/26/16 09:16 11/26/16 09:16 11/26/16 09:16 11/26/16 09:16 Intake and Output: 11/26/16 11/26/16 06:59 18:59 Intake Total 320 Balance 320 - Medications Medications: Current Medications Dicyclomine HCl (Bentyl) 20 mg PO DAILY [facility] Last Admin: 11/26/16 12:13 Dose: 20 mg Imipenem/Cilastatin Sodium 250 (mg/ Sodium Chloride) 100 mls @ 100 mls/hr IVPB Q6H [facility] Last Admin: 11/26/16 12:13 Dose: 100 mls/hr Sodium Chloride (Sodium Chloride 0.9%) 1,000 mls @ 75 mls/hr IV .[id number] [facility] Last Admin: 11/25/16 13:22 Dose: 75 mls/hr Metoclopramide HCl (Reglan) 10 mg PO DAILY [facility] Last Admin: 11/26/16 10:59 Dose: 10 mg Metoprolol Succinate (Toprol Xl) 25 mg PO DAILY [facility] Last Admin: 11/26/16 11:00 Dose: 25 mg Moxifloxacin HCl (Avelox) 400 mg PO DAILY [facility] Last Admin: 11/26/16 10:59 Dose: 400 mg Multivitamins/Vitamin C (Multi-Delyn Liquid) 5 ml PO DAILY [facility] Last Admin: 11/26/16 11:00 Dose: 5 ml Pantoprazole Sodium (Protonix Inj) 40 mg IVP DAILY [facility] Last Admin: 11/26/16 11:00 Dose: 40 mg - Labs Labs: 11/26/16 07:09 11/26/16 07:09 PT 14.8 SECONDS (9.7-12.2) H 11/23/16 23:22 INR 1.3 11/23/16 23:22 APTT 30 SECONDS (21-34) 11/23/16 23:22
[2016-11-26] MEDS: Sodium Chloride 0.9% 1,000 ML IV SCH (15:44)
--- NOTE | 2016-11-26 22:40 | PN ---
DATE: 11/26/2016 SUBJECTIVE: The patient has mental retardation. She is not able to give any answers, but does not a ppear to be in any acute respiratory distress and no other new complaints reported. PHYSICAL EXAMINATION VITAL SIGNS: T-max is 97.3, pulse is 98, blood pressure 118/73, respirations are 20. HEENT: Head is atraumatic, normocephalic. NECK: Supple. LUNGS: Clear. HEART: S1, S2 regular. ABDOMEN: Soft, nontender, no guarding, no rigidity present. EXTREMITIES: No edema, clubbing or cyanosis. LABORATORY DATA: I was not able to get a repeat urine because of her mental retardation and we are n ot able to convey to her what exactly we need her to do, but white count is decreasing, is 12.2. Jaron ro the gram-negative rods. ID and sensitivity is pending at this time, so we will wait for the ID an d sensitivity and will continue present treatment. She did have the x-ray, which showed pneumonia an d also urine had a positive culture. They did a CAT scan of abdomen and pelvis and also she had a ga llbladder ultrasound and the gallbladder ultrasound is incompletely distended, no stones or ductal di latation, fatty liver with focal fatty sparing and she did not have any signs of any pain at that sit e. IMPRESSION: She came in with gram-negative septicemia, mental retardation, pneumonia and is on antib iotics. She also has renal insufficiency and her kidney function is slightly better today. PLAN: Will follow. At this time, I think the gram-negative probably came from the urine and she als o has some pneumonia and she is on double antibiotics, Primaxin, as well as Avelox, and we will rodney nue those for now until we get the ID and sensitivity of the organism. I also want to repeat the blo od cultures tomorrow so that we are in a position to decide about de-escalating the antibiotics. Ciaran Gavin MD cc: [id number] TT: 11/26/2016 22:39:39 Confirmation # [id number] Dictation # [id number] mn
[2016-11-27] MEDS: Imipenem/Cilastatin 250 MG in Sodium Chloride 100 ML IVPB SCH ×3 (06:00→19:48)
[2016-11-27] MEDS: Metoprolol Succinate 25 mg XL Tab PO SCH (10:18)
--- NOTE | 2016-11-27 10:18 | CP.PCM.PN ---
Subjective - Date & Time of Evaluation Date of Evaluation: 11/27/16 Time of Evaluation: 10:10 - Subjective Subjective: Patient seen and examined. No acute events. She is reportedly tolerating PO without difficulty. No nausea or vomiting. No current complaint of abdominal pain. No rectal bleeding/melena. ROS otherwise negative in detail Objective - Vital Signs/Intake and Output Vital Signs (last 24 hours): Temp Pulse Resp BP Pulse Ox 97.5 F L 99 H 20 131/85 100 11/27/16 09:05 11/27/16 09:05 11/27/16 09:05 11/27/16 09:05 11/27/16 09:05 Intake and Output: 11/27/16 11/27/16 06:59 18:59 Intake Total 350 Balance 350 - Medications Medications: Current Medications Dicyclomine HCl (Bentyl) 20 mg PO DAILY [facility] Last Admin: 11/26/16 12:13 Dose: 20 mg Imipenem/Cilastatin Sodium 250 (mg/ Sodium Chloride) 100 mls @ 100 mls/hr IVPB Q6H [facility] Last Admin: 11/27/16 06:00 Dose: 100 mls/hr Sodium Chloride (Sodium Chloride 0.9%) 1,000 mls @ 75 mls/hr IV .[id number] [facility] Last Admin: 11/26/16 15:44 Dose: 75 mls/hr Metoclopramide HCl (Reglan) 10 mg PO DAILY [facility] Last Admin: 11/26/16 10:59 Dose: 10 mg Metoprolol Succinate (Toprol Xl) 25 mg PO DAILY [facility] Last Admin: 11/26/16 11:00 Dose: 25 mg Moxifloxacin HCl (Avelox) 400 mg PO DAILY [facility] Last Admin: 11/26/16 10:59 Dose: 400 mg Multivitamins/Vitamin C (Multi-Delyn Liquid) 5 ml PO DAILY [facility] Last Admin: 11/26/16 11:00 Dose: 5 ml Pantoprazole Sodium (Protonix Inj) 40 mg IVP DAILY [facility] Last Admin: 11/26/16 11:00 Dose: 40 mg - Labs Labs: 11/26/16 07:09 11/26/16 07:09 PT 14.8 SECONDS (9.7-12.2) H 11/23/16 23:22 INR 1.3 11/23/16 23:22 APTT 30 SECONDS (21-34) 11/23/16 23:22 - Constitutional Appears: No Acute Distress - Eye Exam Eye Exam: absent: Scleral icterus - ENT Exam ENT Exam: Mucous Membranes Moist - Respiratory Exam Additional comments: decreased b/l breath sounds - Cardiovascular Exam Cardiovascular Exam: +S1, +S2 - GI/Abdominal Exam Additional comments: abdomen soft, non tender to palpation, no rebound or guarding, bowel sounds present - Extremities Exam Extremities Exam: absent: Pedal Edema - Neurological Exam Neurological Exam: Alert - Skin Skin Exam: Dry Assessment and Plan - Assessment and Plan (Free Text) Assessment: This is a 51 year old female with is admitted with abdominal pain, UTI and E coli bacteremia. She has mild transaminitis. CT scan shows possible distal esophagitis. She has stool occult positive anemia. Plan: Continue supportive care Continue antibiotic therapy as per infectious disease Follow up repeat blood cultures U/S without any evidence of bile duct abnormality/normal T bili Monitor LFTs, avoid hepatotoxins Hep panel negative, f/u remaining autoimmune serologies No evidence of overt GI bleeding, monitor H/H, check iron studies She will need EGD/colonoscopy, which can be electively done as outpatient Diet as tolerated
[2016-11-27] MEDS: Multiple Vitamins Oral Solution PO SCH (10:19)
--- NOTE | 2016-11-27 10:22 | CP.PCM.PN ---
Subjective - Date & Time of Evaluation Date of Evaluation: 11/27/16 Time of Evaluation: 12:00 - Subjective Subjective: clinically same Objective - Vital Signs/Intake and Output Vital Signs (last 24 hours): Temp Pulse Resp BP Pulse Ox 97.5 F L 99 H 20 139/67 100 11/27/16 09:05 11/27/16 09:05 11/27/16 09:05 11/27/16 10:19 11/27/16 09:05 Intake and Output: 11/27/16 11/27/16 06:59 18:59 Intake Total 350 Balance 350 - Medications Medications: Current Medications Dicyclomine HCl (Bentyl) 20 mg PO DAILY [facility] Last Admin: 11/27/16 10:19 Dose: 20 mg Imipenem/Cilastatin Sodium 250 (mg/ Sodium Chloride) 100 mls @ 100 mls/hr IVPB Q6H [facility] Last Admin: 11/27/16 06:00 Dose: 100 mls/hr Sodium Chloride (Sodium Chloride 0.9%) 1,000 mls @ 75 mls/hr IV .[id number] [facility] Last Admin: 11/26/16 15:44 Dose: 75 mls/hr Metoclopramide HCl (Reglan) 10 mg PO DAILY [facility] Last Admin: 11/27/16 10:18 Dose: 10 mg Metoprolol Succinate (Toprol Xl) 25 mg PO DAILY [facility] Last Admin: 11/27/16 10:18 Dose: 25 mg Moxifloxacin HCl (Avelox) 400 mg PO DAILY [facility] Last Admin: 11/27/16 10:18 Dose: 400 mg Multivitamins/Vitamin C (Multi-Delyn Liquid) 5 ml PO DAILY [facility] Last Admin: 11/27/16 10:19 Dose: 5 ml Pantoprazole Sodium (Protonix Inj) 40 mg IVP DAILY [facility] Last Admin: 11/27/16 10:19 Dose: 40 mg - Labs Labs: 11/26/16 07:09 11/26/16 07:09 PT 14.8 SECONDS (9.7-12.2) H 11/23/16 23:22 INR 1.3 11/23/16 23:22 APTT 30 SECONDS (21-34) 11/23/16 23:22 - Constitutional Appears: Well - Head Exam Head Exam: ATRAUMATIC, NORMAL INSPECTION, NORMOCEPHALIC - Eye Exam Eye Exam: EOMI, Normal appearance, PERRL Pupil Exam: NORMAL ACCOMODATION, PERRL - ENT Exam ENT Exam: Mucous Membranes Moist, Normal Exam - Neck Exam Neck Exam: Full ROM, Normal Inspection. absent: Lymphadenopathy - Respiratory Exam Respiratory Exam: Decreased Breath Sounds - Cardiovascular Exam Cardiovascular Exam: REGULAR RHYTHM, +S1, +S2 - GI/Abdominal Exam GI & Abdominal Exam: Soft, Diminished Bowel Sounds - Rectal Exam Rectal Exam: Deferred Assessment and Plan - Assessment and Plan (Free Text) Plan: f/u Gastrology f/u pulmonology f/u ID f/u Policy Manager rodney. Imipenam/Cilastatin iv NS Metoclopramide Avelox Protonix
[2016-11-27] MEDS: Sodium Chloride 0.9% 1,000 ML IV SCH (12:38)
--- NOTE | 2016-11-27 22:05 | CP.PCM.PN ---
Subjective - Date & Time of Evaluation Date of Evaluation: 11/27/16 Time of Evaluation: 02:15 - Subjective Subjective: dictated Objective - Vital Signs/Intake and Output Vital Signs (last 24 hours): Temp Pulse Resp BP Pulse Ox 98.2 F 90 19 139/81 100 11/27/16 15:00 11/27/16 18:37 11/27/16 15:00 11/27/16 15:00 11/27/16 15:00 Intake and Output: 11/27/16 11/28/16 18:59 06:59 Intake Total 1000 100 Balance 1000 100 - Medications Medications: Current Medications Dicyclomine HCl (Bentyl) 20 mg PO DAILY [facility] Last Admin: 11/27/16 10:19 Dose: 20 mg Imipenem/Cilastatin Sodium 250 (mg/ Sodium Chloride) 100 mls @ 100 mls/hr IVPB Q6H [facility] Last Admin: 11/27/16 19:48 Dose: 100 mls/hr Sodium Chloride (Sodium Chloride 0.9%) 1,000 mls @ 75 mls/hr IV .[id number] [facility] Last Admin: 11/27/16 12:38 Dose: 75 mls/hr Metoclopramide HCl (Reglan) 10 mg PO DAILY [facility] Last Admin: 11/27/16 10:18 Dose: 10 mg Metoprolol Succinate (Toprol Xl) 25 mg PO DAILY [facility] Last Admin: 11/27/16 10:18 Dose: 25 mg Moxifloxacin HCl (Avelox) 400 mg PO DAILY [facility] Last Admin: 11/27/16 10:18 Dose: 400 mg Multivitamins/Vitamin C (Multi-Delyn Liquid) 5 ml PO DAILY [facility] Last Admin: 11/27/16 10:19 Dose: 5 ml Pantoprazole Sodium (Protonix Inj) 40 mg IVP DAILY [facility] Last Admin: 11/27/16 10:19 Dose: 40 mg - Labs Labs: 11/26/16 07:09 11/26/16 07:09 PT 14.8 SECONDS (9.7-12.2) H 11/23/16 23:22 INR 1.3 11/23/16 23:22 APTT 30 SECONDS (21-34) 11/23/16 23:22
--- NOTE | 2016-11-27 22:28 | PN ---
DATE: 11/27/2016 SUBJECTIVE: The patient has mental retardation. She is awake, alert, but she does not appear to be in any acute distress. There was no acute events reported. She does not complain of any pain. PHYSICAL EXAMINATION: VITAL SIGNS: T-max is 98.2, pulse 93, blood pressure 139/81, respirations 19 that I see. HEENT: Head is atraumatic, normocephalic. NECK: Supple. LUNGS: Clear. No crackles or rales present. HEART: S1, S2 regular. ABDOMEN: Soft, nontender, no guarding, no rigidity present. NEUROLOGIC: Unable to ask her any questions as she has mental retardation and the father was sitting in the room and he asked but we did not get any replies. LABORATORY DATA: There are no new labs today. Micro obando, her cultures came back. Blood culture ramirez s E. coli and E. coli is very sensitive to Cipro and I have repeated 1blood culture today and urine c ulture is negative. So if this repeat blood culture comes out negative, we will cut down the antibio tic to Cipro. She is actually on moxifloxacin and that also is sensitive. Her creatinine was high; hence, we will repeat it. Chest x-ray also had shown suspicious for mild venous congestion, no evide nce of free air in the upper abdomen, but I think on the abdominal CT, there was mention of findings suspicious of patchy bilateral pneumonia. Recommends clinical correlation. PLAN: So at this time, I think we will check the cultures tomorrow. If they are negative 24 hours, I am going to just leave her on Avelox since urine culture is negative or we can change it to Cipro a nd send her home. May need to complete total 2 weeks of treatment as she has septicemia, and today i s the fourth day of her treatment, so she needs 10 more days of antibiotics. We will follow. Ciaran Gavin MD cc: [id number] TT: 11/27/2016 22:27:47 Confirmation # [id number] Dictation # [id number] alcides
--- NOTE | 2016-11-28 15:05 | CARD ---
APPROVED REPORT EKG Measurement Heart [id number] <Conclusion> Sinus tachycardia with occasional premature ventricular complexes Possible Left atrial enlargement Possible Inferior infarct, age undetermined Abnormal ECG
[2016-11-28 19:14] VITALS: RESP 20
--- NOTE | 2016-11-28 20:33 | CP.PCM.PN ---
Subjective - Date & Time of Evaluation Date of Evaluation: 11/28/16 Time of Evaluation: 02:30 - Subjective Subjective: dictated Objective - Vital Signs/Intake and Output Vital Signs (last 24 hours): Temp Pulse Resp BP Pulse Ox 97.5 F L 101 H 20 117/80 100 11/28/16 16:00 11/28/16 16:00 11/28/16 16:00 11/28/16 16:00 11/28/16 16:00 Intake and Output: 11/28/16 11/29/16 18:59 06:59 Intake Total 500 Balance 500 - Medications Medications: Current Medications Dicyclomine HCl (Bentyl) 20 mg PO DAILY [facility] Last Admin: 11/27/16 10:19 Dose: 20 mg Imipenem/Cilastatin Sodium 250 (mg/ Sodium Chloride) 100 mls @ 100 mls/hr IVPB Q6H [facility] Last Admin: 11/27/16 19:48 Dose: 100 mls/hr Metoclopramide HCl (Reglan) 10 mg PO DAILY [facility] Last Admin: 11/27/16 10:18 Dose: 10 mg Metoprolol Succinate (Toprol Xl) 25 mg PO DAILY [facility] Last Admin: 11/27/16 10:18 Dose: 25 mg Moxifloxacin HCl (Avelox) 400 mg PO DAILY [facility] Last Admin: 11/27/16 10:18 Dose: 400 mg Multivitamins/Vitamin C (Multi-Delyn Liquid) 5 ml PO DAILY [facility] Last Admin: 11/27/16 10:19 Dose: 5 ml Pantoprazole Sodium (Protonix Inj) 40 mg IVP DAILY [facility] Last Admin: 11/27/16 10:19 Dose: 40 mg - Labs Labs: 11/26/16 07:09 11/26/16 07:09 PT 14.8 SECONDS (9.7-12.2) H 11/23/16 23:22 INR 1.3 11/23/16 23:22 APTT 30 SECONDS (21-34) 11/23/16 23:22
--- NOTE | 2016-11-28 21:35 | PN ---
DATE: 11/28/2016 SUBJECTIVE: The patient is afebrile. She was sitting by the side of the bed. She was asking for a comb and did not appear to be in any respiratory distress. PHYSICAL EXAMINATION: VITAL SIGNS: T-max was 97.5. Heart rate is 101, blood pressure is 117/80, respirations are 20. Tod ay the computer was down when I saw her, I am just dictating my note now. HEENT: Head is atraumatic, normocephalic. NECK: Supple. LUNGS: Clear. No crackles or rales present. HEART: S1, S2 regular. ABDOMEN: Soft, nontender, no guarding, no rigidity present. EXTREMITIES: No edema. LABORATORY DATA: There are no new labs. Blood cultures are negative for 24 hours. MEDICATIONS: She is on moxifloxacin and imipenem at this time. The E. coli was sensitive to Cipro, so I am going to change it over to Cipro, so that she can be discharged tomorrow unless there is some thing else going on. She is on antibiotics since 11/24, tomorrow will be day #6 days, so for a week with Cipro. Tomorrow s he can go with a week of Cipro p.o. But her creatinine is 2.5, so I do not feel safe giving Cipro. I would just continue with the Avelox for 7 days. Will follow. Ciaran Gavin MD cc: [id number] TT: 11/28/2016 21:35:09 Confirmation # [id number] Dictation # [id number] jn
--- NOTE | 2016-11-28 22:31 | CP.PCM.PN ---
Subjective - Date & Time of Evaluation Date of Evaluation: 11/28/16 Time of Evaluation: 11:20 - Subjective Subjective: clinically same Objective - Vital Signs/Intake and Output Vital Signs (last 24 hours): Temp Pulse Resp BP Pulse Ox 97.5 F L 101 H 20 117/80 100 11/28/16 16:00 11/28/16 16:00 11/28/16 16:00 11/28/16 16:00 11/28/16 16:00 Intake and Output: 11/28/16 11/29/16 18:59 06:59 Intake Total 500 Balance 500 - Medications Medications: Current Medications Dicyclomine HCl (Bentyl) 20 mg PO DAILY [facility] Last Admin: 11/27/16 10:19 Dose: 20 mg Imipenem/Cilastatin Sodium 250 (mg/ Sodium Chloride) 100 mls @ 100 mls/hr IVPB Q6H [facility] Last Admin: 11/27/16 19:48 Dose: 100 mls/hr Metoclopramide HCl (Reglan) 10 mg PO DAILY [facility] Last Admin: 11/27/16 10:18 Dose: 10 mg Metoprolol Succinate (Toprol Xl) 25 mg PO DAILY [facility] Last Admin: 11/27/16 10:18 Dose: 25 mg Moxifloxacin HCl (Avelox) 400 mg PO DAILY [facility] Last Admin: 11/27/16 10:18 Dose: 400 mg Multivitamins/Vitamin C (Multi-Delyn Liquid) 5 ml PO DAILY [facility] Last Admin: 11/27/16 10:19 Dose: 5 ml Pantoprazole Sodium (Protonix Inj) 40 mg IVP DAILY [facility] Last Admin: 11/27/16 10:19 Dose: 40 mg - Labs Labs: 11/26/16 07:09 11/26/16 07:09 PT 14.8 SECONDS (9.7-12.2) H 11/23/16 23:22 INR 1.3 11/23/16 23:22 APTT 30 SECONDS (21-34) 11/23/16 23:22 Assessment and Plan (1) Abdominal pain Status: Acute (2) Pneumonia Status: Acute (3) Renal insufficiency Status: Acute - Assessment and Plan (Free Text) Plan: f/u Gastrology f/u pulmonology f/u ID f/u [employer] Imipenam/Cilastatin iv NS Metoclopramide Avelox Protonix
[2016-11-29] MEDS: Imipenem/Cilastatin 250 MG in Sodium Chloride 100 ML IVPB SCH ×3 (00:55→14:25)
[2016-11-29] MEDS: Multiple Vitamins Oral Solution PO SCH (10:09)
[2016-11-29] MEDS: Metoprolol Succinate 25 mg XL Tab PO SCH (10:09)
--- NOTE | 2016-11-29 12:07 | CP.PCM.PN ---
Subjective - Date & Time of Evaluation Date of Evaluation: 11/28/16 Time of Evaluation: 08:05 - Subjective Subjective: Patient seen and examined, resting in bed comfortably. No acute events overnight. She denies abdominal pain, nausea, vomiting, fever/chills. Tolerating PO diet without difficulty. 12 point review of systems performed, negative aside from mentioned above. Objective - Vital Signs/Intake and Output Vital Signs (last 24 hours): Temp Pulse Resp BP Pulse Ox 97.7 F 110 H 20 147/86 97 11/28/16 23:15 11/28/16 23:15 11/28/16 23:15 11/28/16 23:15 11/28/16 23:15 Intake and Output: 11/29/16 11/29/16 06:59 18:59 Intake Total 500 Balance 500 - Medications Medications: Current Medications Dicyclomine HCl (Bentyl) 20 mg PO DAILY [facility] Last Admin: 11/29/16 11:47 Dose: 20 mg Imipenem/Cilastatin Sodium 250 (mg/ Sodium Chloride) 100 mls @ 100 mls/hr IVPB Q6H [facility] Last Admin: 11/29/16 06:11 Dose: 100 mls/hr Metoclopramide HCl (Reglan) 10 mg PO DAILY [facility] Last Admin: 11/29/16 10:09 Dose: 10 mg Metoprolol Succinate (Toprol Xl) 25 mg PO DAILY [facility] Last Admin: 11/29/16 10:09 Dose: 25 mg Moxifloxacin HCl (Avelox) 400 mg PO DAILY [facility] Last Admin: 11/29/16 10:09 Dose: 400 mg Multivitamins/Vitamin C (Multi-Delyn Liquid) 5 ml PO DAILY [facility] Last Admin: 11/29/16 10:09 Dose: 5 ml Pantoprazole Sodium (Protonix Inj) 40 mg IVP DAILY [facility] Last Admin: 11/29/16 10:08 Dose: 40 mg - Labs Labs: 11/26/16 07:09 11/26/16 07:09 PT 14.8 SECONDS (9.7-12.2) H 11/23/16 23:22 INR 1.3 11/23/16 23:22 APTT 30 SECONDS (21-34) 11/23/16 23:22 - Constitutional Appears: Non-toxic, No Acute Distress - Head Exam Head Exam: NORMAL INSPECTION - Eye Exam Eye Exam: EOMI, Normal appearance - ENT Exam ENT Exam: Mucous Membranes Moist - Respiratory Exam Respiratory Exam: Clear to Ausculation Bilateral - Cardiovascular Exam Cardiovascular Exam: REGULAR RHYTHM, +S1, +S2 - GI/Abdominal Exam GI & Abdominal Exam: Soft, Normal Bowel Sounds Additional comments: non tender to palpation in four quadrants - Extremities Exam Extremities Exam: Normal Inspection - Skin Skin Exam: Dry, Intact, Normal Color, Warm Assessment and Plan - Assessment and Plan (Free Text) Assessment: Iron deficiency anemia, fecal occult blood positive Transaminitis UTI, gram negative bacteremia Plan: - Diet as tolerated - H/H stable, continue to monitor - LFTs stable, continue to monitor, awaiting autoimmune panel - Patient would benefit from elective outpatient EGD/colonoscopy evaluation for workup of iron deficiency anemia following resolution of acute symptoms - Continue with antibiotic therapy - No ongoing GI issues, will sign off case. Please reconsult as necessary, thank you.
--- NOTE | 2016-11-29 13:47 | CP.PCM.PN ---
Subjective - Date & Time of Evaluation Date of Evaluation: 11/29/16 Time of Evaluation: 13:45 - Subjective Subjective: 51 Y/O FEMALE SEEN AND EXAMINED TODAY, PT WITH PMHX DEMENTIA, ADMITTED FOR PNEUMONIA, UTI, US ABDOMEN- FATTY LIVER, LFTS STABLE, PT DISCHARGE HOME PER DR Eleanor MORRIS, PT CLEARED FOR D/C PER DR FAULKNER, AVELOX FOR 7 DAYS AND ACIDOPHILUS FOR [address] GOLDSTEIN GIVEN, PT EDUCATED TO F/U W/ DR Eleanor MORRIS AND DR GOLDSTEIN, RETURN TO ED IF ANY WORSENING S/S, AGREE, VERBALIZE UNDERSTANDING Objective - Vital Signs/Intake and Output Vital Signs (last 24 hours): Temp Pulse Resp BP Pulse Ox 97.7 F 110 H 20 147/86 97 11/28/16 23:15 11/28/16 23:15 11/28/16 23:15 11/28/16 23:15 11/28/16 23:15 Intake and Output: 11/29/16 11/29/16 06:59 18:59 Intake Total 500 Balance 500 - Medications Medications: Current Medications Dicyclomine HCl (Bentyl) 20 mg PO DAILY [facility] Last Admin: 11/29/16 11:47 Dose: 20 mg Imipenem/Cilastatin Sodium 250 (mg/ Sodium Chloride) 100 mls @ 100 mls/hr IVPB Q6H [facility] Last Admin: 11/29/16 06:11 Dose: 100 mls/hr Metoclopramide HCl (Reglan) 10 mg PO DAILY [facility] Last Admin: 11/29/16 10:09 Dose: 10 mg Metoprolol Succinate (Toprol Xl) 25 mg PO DAILY [facility] Last Admin: 11/29/16 10:09 Dose: 25 mg Moxifloxacin HCl (Avelox) 400 mg PO DAILY [facility] Last Admin: 11/29/16 10:09 Dose: 400 mg Multivitamins/Vitamin C (Multi-Delyn Liquid) 5 ml PO DAILY [facility] Last Admin: 11/29/16 10:09 Dose: 5 ml Pantoprazole Sodium (Protonix Inj) 40 mg IVP DAILY [facility] Last Admin: 11/29/16 10:08 Dose: 40 mg - Labs Labs: 11/26/16 07:09 11/26/16 07:09 PT 14.8 SECONDS (9.7-12.2) H 11/23/16 23:22 INR 1.3 11/23/16 23:22 APTT 30 SECONDS (21-34) 11/23/16 23:22
[2016-11-29 15:02] LABS: BASO % 0.2 % (0.0-2.0); EOS # 0.2 K/uL (0.0-0.7); EOS % 1.2 % (0.0-4.0); HEMATOCRIT 23.8 % (34.0-47.0); LYMPH # 1.5 K/uL (1.0-4.3); MEAN CELL VOLUME 84.5 fL (81.0-99.0); MEAN CORPUSCULAR HEMOGLOBIN 26.3 pg (27.0-31.0); MEAN CORPUSCULAR HGB CONC 31.1 g/dL (33.0-37.0); MEAN PLATELET VOLUME 7.9 fL (7.2-11.7); MONO % 6.4 % (0.0-10.0); WHITE BLOOD COUNT 15.3 K/uL (4.8-10.8)
[2016-11-29 17:12] VITALS: BP 149/72
[2016-11-29 17:39] VITALS: PULSE 113; TEMP 97.3; O2SAT 97
--- NOTE | 2016-11-29 17:57 | CP.PCM.PN ---
Subjective - Date & Time of Evaluation Date of Evaluation: 11/29/16 Time of Evaluation: 11:20 - Subjective Subjective: clinically same Objective - Vital Signs/Intake and Output Vital Signs (last 24 hours): Temp Pulse Resp BP Pulse Ox 97.3 F L 113 H 20 149/72 97 11/29/16 17:39 11/29/16 17:39 11/29/16 17:39 11/29/16 17:39 11/29/16 17:39 Intake and Output: 11/29/16 11/29/16 06:59 18:59 Intake Total 500 Balance 500 - Medications Medications: Current Medications Dicyclomine HCl (Bentyl) 20 mg PO DAILY [facility] Last Admin: 11/29/16 11:47 Dose: 20 mg Imipenem/Cilastatin Sodium 250 (mg/ Sodium Chloride) 100 mls @ 100 mls/hr IVPB Q6H [facility] Last Admin: 11/29/16 14:25 Dose: 100 mls/hr Metoclopramide HCl (Reglan) 10 mg PO DAILY [facility] Last Admin: 11/29/16 10:09 Dose: 10 mg Metoprolol Succinate (Toprol Xl) 25 mg PO DAILY [facility] Last Admin: 11/29/16 10:09 Dose: 25 mg Moxifloxacin HCl (Avelox) 400 mg PO DAILY [facility] Last Admin: 11/29/16 10:09 Dose: 400 mg Multivitamins/Vitamin C (Multi-Delyn Liquid) 5 ml PO DAILY [facility] Last Admin: 11/29/16 10:09 Dose: 5 ml Pantoprazole Sodium (Protonix Inj) 40 mg IVP DAILY [facility] Last Admin: 11/29/16 10:08 Dose: 40 mg - Labs Labs: 11/29/16 14:35 11/26/16 07:09 PT 14.8 SECONDS (9.7-12.2) H 11/23/16 23:22 INR 1.3 11/23/16 23:22 APTT 30 SECONDS (21-34) 11/23/16 23:22 - Constitutional Appears: Well - Head Exam Head Exam: ATRAUMATIC, NORMAL INSPECTION, NORMOCEPHALIC - Eye Exam Eye Exam: EOMI, Normal appearance, PERRL Pupil Exam: NORMAL ACCOMODATION, PERRL - ENT Exam ENT Exam: Mucous Membranes Moist, Normal Exam - Neck Exam Neck Exam: Full ROM, Normal Inspection. absent: Lymphadenopathy - Respiratory Exam Respiratory Exam: Decreased Breath Sounds - Cardiovascular Exam Cardiovascular Exam: REGULAR RHYTHM, +S1, +S2 - GI/Abdominal Exam GI & Abdominal Exam: Soft, Diminished Bowel Sounds - Rectal Exam Rectal Exam: Deferred Assessment and Plan - Assessment and Plan (Free Text) Plan: Patient can be discharged today Continue Avelox for 7 days Continue acidophilus for 10 days Patient follow-up with me in office also with Dr. Gavin
== END 2016-11-29 18:35 | disposition home or self-care (01) | DRG 871 ==
LOC: C.ER 21:26 → C.9E 11-24 02:45 → C.5T 11-24 04:23
PROVIDERS: ADMIT Internal Medicine Nephrology; ATTEND Internal Medicine Nephrology
DX: A41.50 Gram-negative sepsis, unspecified (principal); J18.9 Pneumonia, unspecified organism; F03.90 Unspecified dementia, unspecified severity, without behavioral disturbance, psychotic disturbance, mood disturbance, and anxiety; N39.0 Urinary tract infection, site not specified; I10 Essential (primary) hypertension; B96.20 Unspecified Escherichia coli [E. coli] as the cause of diseases classified elsewhere; N28.9 Disorder of kidney and ureter, unspecified; D50.9 Iron deficiency anemia, unspecified; E03.9 Hypothyroidism, unspecified; F79 Unspecified intellectual disabilities; K21.0 Gastro-esophageal reflux disease with esophagitis; K76.0 Fatty (change of) liver, not elsewhere classified